=== PATIENT | male | born 1960 | race Caucasian/White ===

== ENCOUNTER → 2020-07-11 | Outpatient (CLI) | payer BC ==
--- NOTE | 2020-07-11 17:35 | US ---
EXAMINATION TYPE: US scrotum with doppler. TECHNIQUE: Grayscale and color Doppler Duplex imaging performed of the scrotum. DATE OF EXAM: 07/11/2020 COMPARISON: NONE CLINICAL HISTORY: 59-year-old male [id number] PAIN IN RT TESTICLE. FINDINGS: EXAM MEASUREMENTS: TESTICLES: Right Testicle: 4.9 x 1.9 x 3.1 cm Left Testicle: 3.7 x 1.5 x 2.8 cm EPIDIDYMIS HEAD: Right Epididymis: 0.9 cm with a 5 mm cyst. Left Epididymis: unable to visualize Doppler performed to assess for testicular vascularity; good bilateral color flow and waveforms are s een. There is no evidence of testicular torsion. Presence of hydroceles: small fluid collection lateral to right testicle = 3.0cm Presence of varicoceles: yes, small, bilaterally IMPRESSION: 1. Small bilateral varicoceles. In addition, there is a small, 3 cm hydrocele laterally on the right. 2. No sonographic evidence for testicular torsion or epididymoorchitis.
== END ==
LOC: RADUSWWP 14:45
PROVIDERS: ATTEND Internal Medicine
DX: I86.1 Scrotal varices (principal); N43.3 Hydrocele, unspecified
CPT/HCPCS: 76870; 93975

== ENCOUNTER 2022-03-01 15:42 | Emergency (ER) | payer BC ==
[2022-03-01 15:52] VITALS: BP 140/82; PULSE 70; RESP 16; TEMP 97.9
[2022-03-01] MEDS ORDERED: HYDROmorphone 1 MG/ML 1 ML SYRINGE IVP STA (16:02)
[2022-03-01] MEDS ORDERED: DIPH,PERTUS(ACELL)TETVAC-LF 0.5 ML VIAL IM ONE (16:05)
--- NOTE | 2022-03-01 16:32 | XR ---
EXAMINATION TYPE: XR hand complete LT DATE OF EXAM: 03/01/2022 4:20 PM INDICATION: Patient age:Male; 61 years old; Reason for study: trauma; PHH. COMPARISON: None TECHNIQUE: Frontal, lateral and oblique views of the left hand were obtained. FINDINGS: Volar lateral dislocation of the first distal phalanx with tiny avulsion fragments. There i s overlying soft tissue edema and subcutaneous gas related to laceration. Remaining joints are intact . Mild osteoarthritic changes of the DIP and PIP joints of the first through fifth fingers. IMPRESSION: First distal phalanx dislocation with tiny avulsion fracture. Associated soft tissue trauma.
[2022-03-01] MEDS ORDERED: LIDOCAINE 1% INJ 10MG/ML (20 ML MDV) SQ ONE (17:02)
[2022-03-01] MEDS ORDERED: LIDOCAINE 1% INJ 10MG/ML (5 ML VIAL-PF) SQ ONE (17:15)
--- NOTE | 2022-03-01 18:05 | XR ---
First digit left hand HISTORY: Post reduction 3 views of the first digit left hand correlated to prior exam 03/01/2022 There is been interval reduction of patient's interphalangeal joint of the first digit left hand. Sof t tissue defect consistent with laceration again noted. There are punctate metallic foreign bodies pr esent within the soft tissues. Small ossific density adjacent to the interphalangeal joint may repres ent small chip fracture. Osteoarthritic changes are noted incidentally. IMPRESSION: Interval reduction, possible small fracture and additional findings above
[2022-03-01] MEDS ORDERED: HYDROcodone/APAP 7.5-325MG 1 EACH TAB PO ONE (18:52)
[2022-03-01] MEDS ORDERED: ACET/COD 300 MG/30 MG STARTER PACK 6 TAB BTL PO STA (18:55)
--- NOTE | 2022-03-01 18:58 | ED ---
Trauma HPI - General Chief Complaint: Extremity Injury, Upper Stated Complaint: L thumb lac. Time Seen by Provider: 03/01/22 15:50 Source: patient, family Mode of arrival: ambulatory Limitations: no limitations - History of Present Illness Initial Comments: 61-year-old male presents to the emergency department with laceration of the left thumb. 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 Reports that he was using auger when it got stuck. He bent down to unclog it when his left thumb got caught. He sustained a partial amputation. He is right-hand dominant. States he wrapped a towel and immediately to the hospital. Unsure of his last tetanus vaccine. Patient has no intact range of motion. Bleeding is controlled at this time. Denies any blood thinners. Admits to numbness to the distal tip. No other alleviating, precipitating or modifying factors - Related Data Home Medications Medication Instructions Recorded Confirmed Aspirin 325 mg PO DAILY 03/05/22 03/07/22 lisinopriL [Zestril] 10 mg PO DAILY 03/05/22 03/07/22 Previous Rx's Medication Instructions Recorded Cephalexin [Keflex] 500 mg PO Q6HR #28 cap 03/01/22 HYDROcodone/APAP 10-325MG [[place] 1 tab PO Q4HR PRN 3 Days #18 tab 03/01/22 10-325] Sulfamethox-Tmp 800-160Mg [Bactrim 1 tab PO Q12HR #14 tab 03/07/22 DS 800-160 mg] Allergies Allergy/AdvReac Type Severity Reaction Status Date / Time No Known Allergies Allergy Verified 03/07/22 14:32 Review of Systems ROS Statement: Those systems with pertinent positive or pertinent negative responses have been documented in the HPI. ROS Other: All systems not noted in ROS Statement are negative. Past Medical History Past Medical History: Hypertension History of Any Multi-Drug Resistant Organisms: None Reported Past Surgical History: No Surgical Hx Reported Past Psychological History: No Psychological Hx Reported Smoking Status: Never smoker Past Alcohol Use History: None Reported Past Drug Use History: None Reported General Exam Limitations: no limitations General appearance: alert, in no apparent distress Head exam: Present: atraumatic, normocephalic, normal inspection Extremities exam: Present: other (laceration left thumb, anterior aspect. runs transversly across IP joint. visible dislocation of distal tip. appears to have 60% dettachment. flexor tendon lacerated and tip help in extension. distal tip dusky. Wound edges irregular. joint capsule fragments free floating in wound. bone exposed) Skin exam: Present: other (thumb lac measures 3 cm. not grossly contaminated. some active bleeding from cutanous vessel) Course Vital Signs 03/01/22 03/01/22 15:49 19:07 Temperature 97.9 F Pulse Rate 70 70 Respiratory 16 16 Rate Blood Pressure 140/82 O2 Sat by Pulse 98 99 Oximetry Procedures - Laceration Laceration #1 Consent Obtained: verbal consent Indication: laceration Site: hand Size (cm): 3 Description: irregular Depth: involves muscle layer, involves tendon Anesthetic Used: lidocaine 1%, without epi Anesthesia Technique: local infiltration, nerve block Amount (mls): 10 Pre-repair: wound explored, irrigated extensively, wound margins revised Type of Sutures: nylon Size of Sutures: 5-0 Number of Sutures: 11 Technique: simple, interrupted Patient Tolerated Procedure: well, no complications Medical Decision Making - Medical Decision Making Upon arrival patient was placed into trauma 2. IV is established. He is given 1 g of Dilaudid and 2 g of Ancef. Tetanus is updated. X-ray is performed which demonstrates first distal phalanx dislocation with tiny avulsion fracture. Spoke with Prakash Perla in regards to the patient. He spoke with Dr. Adame. Recommended relocation of the distal phalanx and loose closure. I did perform extensive washout using 5L of normal saline. Finger is reduced. Wound is loosely closed with 11 stitches. I repeated an x-ray which demonstrates interval reduction with possible small fracture. Patient is informed that he will need surgery. This may result in revision amputation. He is to call Dr. Adame's office in the morning to make an appointment to see him in the afternoon. Patient will be given Keflex and [place] for pain control. He is to return to the emergency department for any new or worsening symptoms. Patient agreeable and discharged home in stable condition Disposition Clinical Impression: Partial traumatic amputation of left thumb through phalanx, Open fracture Disposition: HOME SELF-CARE Condition: Serious Instructions (If sedation given, give patient instructions): Finger Laceration (ED) Additional Instructions: Please call the office in the morning at [address] Adame wants to see you tomorrow afternoon in the office. Take the pain medications and antibiotics as directed. Return to the ED for any new or worsening symptoms Prescriptions: Cephalexin [Keflex] 500 mg PO Q6HR #28 cap HYDROcodone/APAP 10-325MG [[place] 10-325] 1 tab PO Q4HR PRN 3 Days #18 tab PRN Reason: Pain Is patient prescribed a controlled substance at d/c from ED?: Yes When asked, does pt state using other controlled substances?: No If prescribed controlled substance>3 days was MAPS reviewed?: Prescribed <3 Days Referrals: Mindi Rodríguez MD [Primary Care Provider] - 1-2 days Mustapha Adame DO [Doctor of Osteopathic Medicine] - 1-2 days Time of Disposition: 18:58
== END 2022-03-01 19:08 | disposition home or self-care (01) ==
LOC: EC 15:42
DX: S68.522A Partial traumatic transphalangeal amputation of left thumb, initial encounter (principal); I10 Essential (primary) hypertension; Z79.82 Long term (current) use of aspirin; W23.1XXA Caught, crushed, jammed, or pinched between stationary objects, initial encounter; Z23 Encounter for immunization
CPT/HCPCS: 73130; 73140; 90715; 99283; 90471; 96375; 96365; 12002; J0690; J2001 ×2; J1170

== ENCOUNTER → 2022-03-07 | Day surgery (SDC) | payer BC ==
--- NOTE | 2022-03-06 10:25 | P.HPOR ---
History of Present Illness H&P Date: 03/06/22 Chief Complaint: Left thumb open IP joint dislocation Subjective: This is a 61 year old male that presents today for initial evaluation regarding a left thumb injury that occurred on 03/01/22. 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 He was seen in the ED and found to have an open thumb IP dislocation. His wounds were irrigated and loosely closed and he has been on antibiotics since the injury and in a soft dressing. Physical Examination: LUE: AIN/PIN/Radial/Ulnar/Median motor intact. Radial/Ulnar/Median SILT. 2+/4 Radial/Ulnar pulses palpated. 5/5 APB, 5/5 FDI. Negative Finkelsteins, negative CMC grind, negative Durkan's compression. Laceration over volar radial aspect of thumb tip. Thumb is well perfused, terminal extensor tendon appears to be intact against resistance. FPL difficult to test due to pain, able to flicker thumb IP joint. Imaging: X-Rays of the left thumb demonstrate reduced thumb IP joint but with some mild subluxation of the distal phalanx. X-Rays reviewed from 03/01/22 in ED demonstrate a dorsal thumb IP dislocation with post reduction films demonstrating reduced thumb IP joint. Impression: 1.) Left thumb open IP joint dislocation Plan: Diagnosis and treatment options were discussed with the patient. I recommend surgical exploration with possible thumb IP joint pinning and/or flexor/extensor tendon repair due to mild subluxation of thumb IP joint indicating instability. Risks and benefits of surgery including bleeding, infection, damage to surrounding tissue, need for further surgery, residual numbness, stiffness, possible need for arthrodesis in future were discussed and the patient wished to go forward with surgery. New splint was applied in office and he is scheduled for surgery in the near future. The patient was agreeable with this plan. -Mustapha Adame DO Orthopedic Hand/Upper Extremity Surgeon Past Medical History Past Medical History: Cancer, Hypertension, Musculoskeletal Disorder Additional Past Medical History / Comment(s): hx. basal skin cancer, injured left thumb in farming accident -partial cast & wrap currently History of Any Multi-Drug Resistant Organisms: None Reported Past Surgical History: No Surgical Hx Reported Additional Past Surgical History / Comment(s): colonoscopy Past Anesthesia/Blood Transfusion Reactions: No Reported Reaction Smoking Status: Never smoker Medications and Allergies Home Medications Medication Instructions Recorded Confirmed Type Cephalexin [Keflex] 500 mg PO Q6HR #28 cap 03/01/22 03/05/22 Rx HYDROcodone/APAP 10-325MG [[place] 1 tab PO Q4HR PRN 3 Days #18 tab 03/01/22 03/05/22 Rx 10-325] Aspirin 325 mg PO DAILY 03/05/22 03/05/22 History lisinopriL [Zestril] 10 mg PO DAILY 03/05/22 03/05/22 History Allergies Allergy/AdvReac Type Severity Reaction Status Date / Time No Known Allergies Allergy Verified 03/05/22 12:10 Physical Examination Osteopathic Statement: *. No significant issues noted on an osteopathic structural exam other than those noted in the History and Physical/Consult.
[~2022-03-07] MED LIST: BUPIVACAIN-EPI 0.25%-1:200,000 30 ML VIAL SQ ONE; DEXAMETHASONE SOD PHOSPHATE 4 MG/ML 1 ML VIAL IV ONE; HYDROmorphone (PF) 1 MG/ML ONE; HYDROmorphone 0.5 MG/0.5 ML SYRINGE IVP PRN; LACTATED RINGERS 1,000 ML IV ONE; LACTATED RINGERS 1,000 ML IV SCH; LIDOCAINE 2% INJ 20 MG/ML (2 ML VIAL) ONE; MIDAZOLAM 2 MG/2 ML VIAL ONE; ONDANSETRON 4 MG/2 ML VIAL IVP ONE; PROPOFOL 10 MG/ML 20 ML VIAL IV ONE; ePHEDrine 50 MG/ML 1 ML VIAL ONE; fentaNYL (PF) 50 MCG/ML 2 ML AMP ONE
[2022-03-07 14:35] VITALS: RESP 16; TEMP 97
[2022-03-07 14:56] LABS: Basophils # (A) 0.1 k/uL (0-0.2); Basophils % (A) 1 %; Eosinophils # (A) 0.1 k/uL (0-0.7); Eosinophils % (A) 2 %; HCT 41.1 % (39.0-53.0); HGB 13.8 gm/dL (13.0-17.5); Lymphocytes # (A) 1.2 k/uL (1.0-4.8); Lymphocytes % (A) 18 %; MCH 30.4 pg (25.0-35.0); MCHC 33.5 g/dL (31.0-37.0); MCV 90.8 fL (80.0-100.0); Mean Platelet Volume 7.5; Monocytes # (A) 0.4 k/uL (0-1.0); Monocytes % (A) 6 %; Neutrophils # (A) 4.7 k/uL (1.3-7.7); Neutrophils % (A) 71 %; Platelet Count 401 k/uL (150-450); RBC 4.53 m/uL (4.30-5.90); RDW 11.9 % (11.5-15.5); WBC 6.7 k/uL (3.8-10.6)
[2022-03-07 15:08] LABS: African American GFR (CKD) >90 (>60 ml/min/1.73 sqM); Anion Gap 11 mmol/L; Blood Urea Nitrogen 21 mg/dL (9-20); Calcium 9.3 mg/dL (8.4-10.2); Carbon Dioxide 24 mmol/L (22-30); Chloride 102 mmol/L (98-107); Glucose 96 mg/dL (74-99); Non-African American GFR(CKD) >90 (>60 ml/min/1.73 sqM); Potassium 4.5 mmol/L (3.5-5.1); Sodium 137 mmol/L (137-145)
[2022-03-07 19:30] VITALS: BP 132/68; PULSE 79
--- NOTE | 2022-03-07 21:11 | P.OP ---
Date of Procedure: 03/07/22 Preoperative Diagnosis: 1.) Left thumb open IP joint dislocation Postoperative Diagnosis: 1.) Left thumb open IP joint dislocation 2.) Left thumb abscess 3.) Left thumb 60% thickness FPL laceration 4.) Left thumb 3cm complex laceration Procedure(s) Performed: 1.) Left thumb open IP joint dislocation open reduction internal fixation 2.) Left thumb abscess incision, irrigation and debridement of skin, fat, and non viable tendon. 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 He presented to the ED immediately following his injury where closed reduction, irrigation and debridement, and loose closure was performed of his injury. On close office follow up he was found to have an unstable thumb IP joint and presents today for surgical intervention. He was given appropriate antibiotics and tetanus in the emergency department. Risks and benefits of surgery were discussed with the patient including bleeding, damage to surrounding tissue, infection, need for further surgery as well as risks of anesthesia including pulmonary embolism and even and the patient wished to proceed with surgical intervention. The patient was seen in the pre-operative area by myself. Consent and H&P were completed and updated. The correct extremity was marked in the pre-operative area by myself and all other questions were answered. Operative Narrative: The patient was brought to the operating room by the department of anesthesia. They remained on the portable stretcher and a rolling hand table was brought to the side of the operative extremity. Pre-operative time out was performed indicating the correct patient, procedure and laterality. All in the room agreed. Pre-operative antibiotics were given prior to skin incision. The patient was then drifted off to sleep by the department of anesthesia. A nonsterile tourniquet was then applied to the operative extremity and the left upper extremity was then prepped and draped in normal sterile fashion. The operative extremity was then elevated to gravity and the tourniquet was inflated to 250mmHg. Upon taking down the thumb spica splint there was an immediate fowl odor and purulence present at the site of the laceration. Previously placed sutures were removed and instruments were handed off of the field. Cultures were collected and sent for lab evaluation. There was a 3cm laceration that spanned from the radial aspect of the thumb and traveled transversely just distal to the thumb IP joint. Non-viable skin edges were excised with 15 blade scalpel and all necrotic and infected looking tissues including fat and frayed tendon was excised. 3L of normal sterile saline was then used to thoroughly irrigate the wound. After extensive irrigation the thumb IP joint was found to be subluxed with both collateral ligaments and the volar plate torn. The FPL tendon appeared to have 60% thickness laceration with the edges extremely frayed and non-viable. The edges were trimmed leaving the remaining 40% of the tendon intact. Due to the severe instability of the thumb IP joint decision was made to pin the thumb IP joint for temporary stabilization. Under live flouroscopy 2 0.045 K-wires were then inserted in retrograde fashion from the distal phalanx across the IP joint into the proximal phalanx. Concentric reduction of the thumb IP joint was confirmed on AP and lateral views. K-wire edges were cut. The wound was again irrigated with additional 1 L of sterile saline. Loose closure was performed of the laceration with 4-0 Nylon suture. Digital block was performed with 10cc's of 0.25% Bupivicaine. Sterile dressing was applied with adaptic, 4x4s, webril and thumb spica plaster splint. Tourniquet was let down and the thumb had immediate perfusion. The patient was then woken by the department of anesthesia and transferred to PACU in stable condition. Kendall Mccrary was present for the case to assist in reduction, hardware placement, and protection of vital neurovascular structures. Mustapha Adame D.O. Orthopedic Hand/Upper Extremity Surgeon
== END | disposition home or self-care (01) ==
LOC: OR 13:34
PROVIDERS: ATTEND Orthopaedic Surgery Hand Surgery
DX: S63.125A Dislocation of interphalangeal joint of left thumb, initial encounter (principal); L02.512 Cutaneous abscess of left hand; I10 Essential (primary) hypertension; Z85.828 Personal history of other malignant neoplasm of skin; Z98.890 Other specified postprocedural states; Z79.82 Long term (current) use of aspirin; Z79.899 Other long term (current) drug therapy
CPT/HCPCS: 80048; 85025; 87070; 87205; 87075; 26746; 26010; J2250; J1100; J0690; J2405; J3010; J1170; J2704; J2001